=== PATIENT | male | born 1965 | race African-American/Black ===

== ENCOUNTER 2019-10-12 14:41 | Emergency (ER) | payer SELFPAY ==
[2019-10-12] MEDS ORDERED: Proparacaine 0.5% Opth 15 ML BOT ONE (15:55)
[2019-10-12] MEDS ORDERED: Fluorescein Opthalmic Strip ONE (15:56)
[2019-10-12] MEDS ORDERED: Acetaminophen 500 MG TAB ONE (16:06)
== END 2019-10-12 16:23 | disposition home or self-care (01) ==
LOC: ERS 14:41
DX: S05.02XA Injury of conjunctiva and corneal abrasion without foreign body, left eye, initial encounter (principal); F31.9 Bipolar disorder, unspecified; F20.9 Schizophrenia, unspecified; F17.210 Nicotine dependence, cigarettes, uncomplicated; X58.XXXA Exposure to other specified factors, initial encounter
CPT/HCPCS: 99283

== ENCOUNTER 2025-05-21 11:51 | Observation (INO) | payer OTHER ==
[2025-05-21 12:19] LABS: #Basophils 0.03 10x3/uL (0.0-0.2); #Eosinophils 0.05 10x3/uL (0.0-0.7); #Monocytes 0.47 10x3/uL (0.11-0.59); #Neutrophils 2.94 10x3/uL (1.40-6.50); %Basophils 0.5 % (0.0-1.0); %Eosinophils 0.9 % (0.0-10.0); %Lymphocytes 38.6 % (21.0-51.0); %Monocytes 8.2 % (0.0-10.0); %Neutrophils 51.5 % (42.0-75.0); Hematocrit 44.8 % (42.0-52.0); Hemoglobin 15.0 g/dL (14.0-18.0); Mean Corpuscular Hemoglobin 29.7 pg (27.0-31.0); Mean Corpuscular Volume 88.7 fL (78.0-98.0); Platelet Count 216 10x3/uL (130-400); Red Blood Cell (RBC) Count 5.05 mill/uL (4.70-6.10); White Blood Cell (WBC) Count 5.72 10x3/uL (4.8-10.8)
[2025-05-21 12:33] LABS: ALT (SGPT) 22 U/L (Less than 45); AST (SGOT) 26 U/L (11-34); Albumin 3.9 g/dL (3.1-4.5); Alkaline Phosphatase 81 U/L (40-110); Anion Gap 14 mmol/L (10-20); BUN (Urea Nitrogen) 7 mg/dL (8.4-25.7); Bilirubin, Total 0.4 mg/dL (0.3-1.2); Calc. Creatinine Clearance 0 mL/min (70-130); Calcium 8.7 mg/dL (7.8-10.44); Carbon Dioxide 25 mmol/L (22-29); Chloride 105 mmol/L (98-107); Globulin 3.5 g/dL (2.4-3.5); Glucose 98 mg/dL (70-105); Potassium 3.0 mmol/L (3.5-5.1); Sodium 141 mmol/L (136-145)
[2025-05-21] MEDS ORDERED: Ondansetron PF 4 MG/2 ML Vial IVP PRN (13:37)
[2025-05-21] MEDS ORDERED: Acetaminophen 325 MG TAB PO PRN (13:37)
[2025-05-21] MEDS ORDERED: Melatonin 3 MG TAB PO PRN (13:37)
[2025-05-21] MEDS ORDERED: Nitroglycerin 0.4 MG TAB (25 Tab Bottle) SL PRN (13:38)
[2025-05-21] MEDS ORDERED: Electrolyte Replacement Protocol 1 EACH FS SCH (13:45)
[2025-05-21] MEDS ORDERED: Azithromycin 250 MG TAB PO SCH (14:15)
[2025-05-21 15:19] VITALS: BMI 27.3
[2025-05-21] MEDS: Azithromycin 250 MG TAB PO SCH (15:50)
[2025-05-21 16:13] LABS: Magnesium 2.4 mg/dL (1.6-2.6)
[2025-05-21] MEDS: Famotidine 20 MG TAB PO SCH (20:43)
[2025-05-21] MEDS: Famotidine/PF 20 mg/2ml Vial SLOW IVP SCH (20:45)
[2025-05-22 05:27] LABS: Anion Gap 11 mmol/L (10-20); BUN (Urea Nitrogen) 9 mg/dL (8.4-25.7); Calc. Creatinine Clearance 159 mL/min (70-130); Calcium 8.6 mg/dL (7.8-10.44); Carbon Dioxide 26 mmol/L (22-29); Cardiac Risk 3.1 (Less than 4.5); Chloride 105 mmol/L (98-107); Cholesterol 152 mg/dl (< 200 Desired); Glucose 97 mg/dL (70-105); HDL Cholesterol 49 mg/dL (>60 Neg Risk); LDL Cholesterol, Calculated 91 mg/dL; Magnesium 2.2 mg/dL (1.6-2.6); Potassium 3.8 mmol/L (3.5-5.1); Sodium 138 mmol/L (136-145); Triglycerides 58 mg/dL (Less than 150)
[2025-05-22] MEDS ORDERED: Enoxaparin 40 MG (0.4 mL) SYRINGE SC SCH (09:00)
[2025-05-22] MEDS: Azithromycin 250 MG TAB PO SCH (11:24)
[2025-05-22] MEDS: Aspirin Chewable 81 MG TAB PO SCH (11:24)
[2025-05-22 15:21] VITALS: BP 152/78; TEMP 98.6
== END 2025-05-22 17:50 | disposition home or self-care (01) ==
LOC: ERS 11:51 → 2NO 13:37
PROVIDERS: ADMIT Family Medicine; ATTEND Internal Medicine
PROC: B24BZZZ Ultrasonography of Heart with Aorta (ICD-10-PCS; principal; 2025-05-22)
DX: R07.9 Chest pain, unspecified (principal); R11.0 Nausea; R61 Generalized hyperhidrosis; R94.31 Abnormal electrocardiogram [ECG] [EKG]; J40 Bronchitis, not specified as acute or chronic; E87.6 Hypokalemia; F41.9 Anxiety disorder, unspecified; F31.9 Bipolar disorder, unspecified; F20.9 Schizophrenia, unspecified; Z87.891 Personal history of nicotine dependence; Z90.49 Acquired absence of other specified parts of digestive tract
CPT/HCPCS: 36415; 71045; 78452; 80048; 80053; 80061; 83036; 83735; 84484; 85025; 87428; 93005; 93017; 93306; 94760; A9502; G0378; J2785; J7120

== ENCOUNTER 2025-09-13 20:30 | Emergency (ER) | payer OTHER ==
[2025-09-13 21:50] LABS: #Basophils 0.03 10x3/uL (0.0-0.2); #Eosinophils 0.05 10x3/uL (0.0-0.7); #Monocytes 0.47 10x3/uL (0.11-0.59); #Neutrophils 3.27 10x3/uL (1.40-6.50); %Basophils 0.5 % (0.0-1.0); %Eosinophils 0.8 % (0.0-10.0); %Lymphocytes 40.3 % (21.0-51.0); %Monocytes 7.3 % (0.0-10.0); %Neutrophils 50.8 % (42.0-75.0); Hematocrit 41.7 % (42.0-52.0); Hemoglobin 14.5 g/dL (14.0-18.0); Mean Corpuscular Hemoglobin 30.0 pg (27.0-31.0); Mean Corpuscular Volume 86.3 fL (78.0-98.0); Platelet Count 219 10x3/uL (130-400); Red Blood Cell (RBC) Count 4.83 mill/uL (4.70-6.10); White Blood Cell (WBC) Count 6.43 10x3/uL (4.8-10.8)
[2025-09-13 22:11] LABS: ALT (SGPT) 27 U/L (Less than 45); AST (SGOT) 28 U/L (11-34); Albumin 3.8 g/dL (3.1-4.5); Alkaline Phosphatase 78 U/L (40-110); Anion Gap 14 mmol/L (10-20); BUN (Urea Nitrogen) 7 mg/dL (8.4-25.7); Bilirubin, Total 0.3 mg/dL (0.3-1.2); Calc. Creatinine Clearance 0 mL/min (70-130); Calcium 8.8 mg/dL (7.8-10.44); Carbon Dioxide 25 mmol/L (22-29); Chloride 107 mmol/L (98-107); Globulin 2.9 g/dL (2.4-3.5); Glucose 94 mg/dL (70-105); Lipase 14 U/L (8-78); Potassium 3.9 mmol/L (3.5-5.1); Sodium 142 mmol/L (136-145)
== END 2025-09-13 22:52 ==
LOC: ERS 20:30
DX: R07.9 Chest pain, unspecified (principal); F17.210 Nicotine dependence, cigarettes, uncomplicated
CPT/HCPCS: 71045; 80053; 83690; 84484; 85025; 93005